=== PATIENT | male | born 1960 | race Hispanic/Latino ===

== ENCOUNTER 2023-09-19 20:12 | Emergency (ER) | payer BC, SELFPAY ==
[2023-09-19] MEDS ORDERED: LORazepam 2 MG/ML SYR.(CARPUJECT) ONE (20:17)
[2023-09-19 21:22] LABS: #Eosinphils 0.1 thou/uL (0.0-0.7); #Monocytes 0.7 thou/uL (0.11-0.59); #Neutrophils 4.8 thou/uL (1.40-6.50); %Basophils 0.6 % (0.0-1.0); %Lymphocytes 16.9 % (21.0-51.0); %Monocytes 9.6 % (0.0-10.0); %Neutrophils 71.5 % (42.0-75.0); Hematocrit 36.4 % (42.0-52.0); Hemoglobin 12.1 g/dL (14.0-18.0); Mean Corpuscular HGB CONC 33.2 g/dL (32.0-36.0); Mean Corpuscular Volume 96.3 fl (78.0-98.0); Mean Platelet Volume 10.9 fL (7.4-10.4); Platelet Count 211 10x3/uL (130-400); RBC Distribution Width 13.8 % (11.5-14.5); Red Blood Cell (RBC) Count 3.78 mill/uL (4.70-6.10); White Blood Cell (WBC) Count 6.7 10x3/uL (4.8-10.8)
[2023-09-19 21:45] LABS: ALT (SGPT) 21 U/L (8-55); AST (SGOT) 20 U/L (5-34); Albumin 3.9 g/dL (3.4-4.8); Alkaline Phosphatase 85 U/L (40-110); Anion Gap 17 mmol/L (10-20); BUN (Urea Nitrogen) 10 mg/dL (8.4-25.7); Bilirubin, Total 0.5 mg/dL (0.2-1.2); Calc. Creatinine Clearance 0 mL/min (70-130); Calcium 8.7 mg/dL (7.8-10.44); Carbon Dioxide 24 mmol/L (23-31); Chloride 102 mmol/L (98-107); Estimated GFR 107; Glucose 121 mg/dL (80-115); Potassium 4.7 mmol/L (3.5-5.1); Protein, Total 6.9 g/dL (5.8-8.1); Sodium 138 mmol/L (136-145)
[2023-09-19 21:50] LABS: Troponin I Less than 0.010 ng/mL (< 0.028)
[2023-09-19 21:54] LABS: Bacteria/HPF None Seen HPF (None Seen); Bilirubin Negative (Negative); Blood, Urine Negative (Negative); CAUTI Indications for Culture Alt mental st,lethar; Clarity Clear (Clear); Glucose, Urine (Dipstick) Normal (Negative); Ketone, Urine Trace mg/dL (Negative); Leukocyte Negative Leu/uL (Negative); Mucous/LPF Rare LPF (<2+); Nitrite Negative (Negative); Protein, Urine (Dipstick) 10 mg/dL (Neg-Trace); RBC/HPF 0-3 HPF (0-3); Specific Gravity, Urine 1.024 (1.002-1.036); Squamous Epithelial None Seen HPF (0-3); Transitional Epithelial 0-3 HPF (None Seen); Urobilinogen Normal mg/dL (Less than 2); WBC/HPF 0-3 HPF (0-3); pH, Urine 5.5 (5.0-9.0)
[2023-09-19 21:55] LABS: Urine Culture Reflex No No
== END 2023-09-19 23:08 | disposition home or self-care (01) ==
LOC: ERS 20:12
DX: R56.9 Unspecified convulsions (principal); E11.9 Type 2 diabetes mellitus without complications
CPT/HCPCS: 36416; 51701; 70450; 80053; 81001; 84484; 85025; 93005; 96372; J2060

== ENCOUNTER 2024-09-24 21:16 | Inpatient (IN) | payer BC, SELFPAY ==
[2024-09-24 21:51] LABS: Actual Bicarbonate (HCO3v) 21.6 mEq/L (22-28); Analyzer IN Cardio ER; Calcium, Ionized (venous) 1.16 mmol/L (1.16-1.32); Chloride (VBG) 103 mmol/L (98-106); Hematocrit-VBG 49 % (42.0-52.0); Hemoglobin (Hb) 16.5 g/dL (13.1-17.2); Potassium (VBG) 4.47 mmol/L (3.70-5.30); Sodium 142 mmol/L (133-146); pH (venous) 7.418 (7.32-7.43)
[2024-09-24 21:52] LABS: #Basophils 0.05 10x3/uL (0.0-0.2); #Eosinophils Less than 0.03 10x3/uL (0.0-0.7); %Basophils 0.3 % (0.0-1.0); %Eosinophils 0.1 % (0.0-10.0); %Lymphocytes 5.3 % (21.0-51.0); %Monocytes 10.7 % (0.0-10.0); %Neutrophils 82.5 % (42.0-75.0); Hematocrit 46.3 % (42.0-52.0); Hemoglobin 15.7 g/dL (14.0-18.0); Mean Corpuscular HGB CONC 33.9 g/dL (32.0-36.0); Mean Corpuscular Hemoglobin 32.2 pg (27.0-31.0); Mean Corpuscular Volume 95.1 fL (78.0-98.0); Mean Platelet Volume 9.9 fL (7.4-10.4); Platelet Count 146 10x3/uL (130-400); RBC Distribution Width 13.6 % (11.5-14.5); Red Blood Cell (RBC) Count 4.87 mill/uL (4.70-6.10)
[2024-09-24 22:10] LABS: ALT (SGPT) 17 U/L (8-55); AST (SGOT) 36 U/L (5-34); Acetaminophen Less than 10 mcg/mL (Less than 10); Albumin 3.1 g/dL (3.4-4.8); Alcohol Less than 10.0 mg/dL (Less than 10); Alkaline Phosphatase 54 U/L (40-110); Anion Gap 19 mmol/L (10-20); BUN (Urea Nitrogen) 18 mg/dL (8.4-25.7); Bilirubin, Total 0.5 mg/dL (0.2-1.2); Calc. Creatinine Clearance 0 mL/min (70-130); Calcium 8.9 mg/dL (7.8-10.44); Carbon Dioxide 18 mmol/L (23-31); Chloride 106 mmol/L (98-107); Estimated GFR 99; Globulin 4.5 g/dL (2.4-3.5); Glucose 189 mg/dL (80-115); Potassium 4.2 mmol/L (3.5-5.1); Protein, Total 7.6 g/dL (5.8-8.1); Salicylate Less than 8.0 mg/dL (Less than 8.0); Sodium 139 mmol/L (136-145)
[2024-09-24 22:21] LABS: Bacteria/HPF None Seen HPF (None Seen); Bilirubin Negative (Negative); Blood, Urine Negative (Negative); CAUTI Indications for Culture Alt mental st,lethar; Clarity Clear (Clear); Glucose, Urine (Dipstick) Normal (Negative); Ketone, Urine 20 mg/dL (Negative); Leukocyte Negative Leu/uL (Negative); Nitrite Negative (Negative); Protein, Urine (Dipstick) 30 mg/dL (Neg-Trace); RBC/HPF 0-3 HPF (0-3); Specific Gravity, Urine 1.039 (1.002-1.036); Squamous Epithelial 0-3 HPF (0-3); WBC/HPF 0-3 HPF (0-3)
[2024-09-24 22:22] LABS: Urine Culture Reflex No No
[2024-09-24 22:27] LABS: Amphetamine Not Detected (NotDetected); Barbiturates Screen Not Detected (NotDetected); Benzodiazepine Screen Not Detected (NotDetected); Cocaine Metabolite Screen Not Detected (NotDetected); Methadone Not Detected (NotDetected); Methamphetamine Not Detected (NotDetected); Opiate Screen Not Detected (NotDetected); Oxycodone Screen Not Detected (NotDetected); Phencyclidine (PCP) Not Detected (NotDetected); THC/Cannabinoid Screen Not Detected (NotDetected); Tricyclic Screen Not Detected (NotDetected)
[2024-09-24] MEDS ORDERED: cefTRIAXone (ROCEPHIN) 2 GM VIAL ONE (22:30)
[2024-09-24] MEDS ORDERED: Acetaminophen 325 MG Suppository ONE (22:30)
[2024-09-24] MEDS ORDERED: Sodium Chloride 0.9% 100 ML ONE (22:30)
[2024-09-24] MEDS ORDERED: Acetaminophen 325 MG TAB PO PRN (23:45)
[2024-09-24] MEDS ORDERED: Ondansetron ODT 4 MG TAB SL PRN (23:45)
[2024-09-24] MEDS ORDERED: Ondansetron PF 4 MG/2 ML Vial IVP PRN (23:45)
[2024-09-25] MEDS ORDERED: Glucagon 1 MG/ML KIT IM PRN (00:27)
[2024-09-25] MEDS ORDERED: Dextrose 50% Abboject 50 ML SYRINGE SLOW IVP PRN (00:27)
[2024-09-25] MEDS ORDERED: Dextrose 5% in Water 1,000 ML IV PRN (00:27)
[2024-09-25] MEDS ORDERED: Insulin Lispro 100 UNIT/ML 10 ML VIAL SC PRN ×2 (00:27)
[2024-09-25] MEDS: Piperacillin/Tazobactam 3.375 GM in Sodium Chloride 0.9% 100 ML IVPB SCH ×3 (01:00→10:01)
[2024-09-25 01:42] LABS: Lactic Acid 3.61 mmol/L (0.5-2.2)
[2024-09-25] MEDS: Sodium Chloride 0.9% 1,000 ML IV SCH (02:15)
[2024-09-25 03:07] VITALS: BMI 30.6
[2024-09-25] MEDS: Vancomycin (BATCH) 1.75 GM in Premix 1 BAG IVPB SCH (04:35)
[2024-09-25 04:40] LABS: #Basophils 0.04 10x3/uL (0.0-0.2); #Eosinophils Less than 0.03 10x3/uL (0.0-0.7); %Basophils 0.3 % (0.0-1.0); %Lymphocytes 13.9 % (21.0-51.0); %Monocytes 8.8 % (0.0-10.0); Hematocrit 42.4 % (42.0-52.0); Hemoglobin 13.8 g/dL (14.0-18.0); Mean Corpuscular HGB CONC 32.5 g/dL (32.0-36.0); Mean Corpuscular Hemoglobin 32.2 pg (27.0-31.0); Mean Corpuscular Volume 99.1 fL (78.0-98.0); Mean Platelet Volume 11.5 fL (7.4-10.4); Platelet Count 97 10x3/uL (130-400); RBC Distribution Width 13.7 % (11.5-14.5); Red Blood Cell (RBC) Count 4.28 mill/uL (4.70-6.10)
[2024-09-25 04:54] LABS: Anion Gap 13 mmol/L (10-20); BUN (Urea Nitrogen) 16 mg/dL (8.4-25.7); Calc. Creatinine Clearance 133 mL/min (70-130); Calcium 8.1 mg/dL (7.8-10.44); Carbon Dioxide 26 mmol/L (23-31); Chloride 109 mmol/L (98-107); Estimated GFR 105; Glucose 118 mg/dL (80-115); Magnesium 2.1 mg/dL (1.6-2.6); Potassium 4.3 mmol/L (3.5-5.1); Sodium 144 mmol/L (136-145)
[2024-09-25 04:55] LABS: Vancomycin, Random 25.9 ug/mL (See Comment)
[2024-09-25 04:59] LABS: Lactic Acid 3.42 mmol/L (0.5-2.2)
[2024-09-25 05:57] LABS: Platelet Adequacy Comment Platelets Decreased; RBC Morphology Within Normal Limits
[2024-09-25] MEDS ORDERED: Piperacillin/Tazobactam 3.375 GM in Sodium Chloride 0.9% 100 ML IVPB SCH (06:00)
[2024-09-25] MEDS ORDERED: Vancomycin 1 GM in Premix 1 BAG IVPB SCH (12:00)
[2024-09-25] MEDS: VANCOMYCIN 1.25 GM/250 ML BAG 1.25 GM in Premix 1 BAG IVPB SCH (12:39)
[2024-09-25] MEDS: Aspirin 81 mg Enteric Coated Tablet PO SCH (14:32)
[2024-09-25] MEDS: Lactated Ringer's 1,000 ML IV SCH (15:41)
[2024-09-25] MEDS: Atorvastatin Calcium 40 MG TAB PO SCH (22:27)
[2024-09-25] MEDS: Divalproex Sodium DR 500 MG TAB PO SCH (22:27)
[2024-09-26 05:24] LABS: #Basophils 0.06 10x3/uL (0.0-0.2); %Basophils 0.8 % (0.0-1.0); %Lymphocytes 24.2 % (21.0-51.0); %Monocytes 10.6 % (0.0-10.0); %Neutrophils 61.6 % (42.0-75.0); Hematocrit 37.3 % (42.0-52.0); Hemoglobin 12.1 g/dL (14.0-18.0); Mean Corpuscular HGB CONC 32.4 g/dL (32.0-36.0); Mean Corpuscular Hemoglobin 31.6 pg (27.0-31.0); Mean Corpuscular Volume 97.4 fL (78.0-98.0); Mean Platelet Volume 10.2 fL (7.4-10.4); Platelet Count 119 10x3/uL (130-400); RBC Distribution Width 13.8 % (11.5-14.5); Red Blood Cell (RBC) Count 3.83 mill/uL (4.70-6.10)
[2024-09-26 05:33] LABS: Anion Gap 11 mmol/L (10-20); BUN (Urea Nitrogen) 15 mg/dL (8.4-25.7); Calc. Creatinine Clearance 140 mL/min (70-130); Calcium 8.1 mg/dL (7.8-10.44); Carbon Dioxide 25 mmol/L (23-31); Chloride 111 mmol/L (98-107); Estimated GFR 106; Glucose 97 mg/dL (80-115); Sodium 143 mmol/L (136-145)
[2024-09-26] MEDS ORDERED: [UNRECOGNIZED DRUG - OTHER] PO SCH (09:00)
[2024-09-26] MEDS: Cyanocobalamin (Vitamin B-12) 1,000 MCG TAB PO SCH (09:45)
[2024-09-26] MEDS: Aspirin 81 mg Enteric Coated Tablet PO SCH (09:45)
[2024-09-26] MEDS: metFORMIN 500 MG TAB PO SCH (09:45)
[2024-09-26] MEDS: Losartan 25 MG TAB PO SCH (09:46)
[2024-09-26] MEDS: levETIRAcetam 500 MG (5 mL) VIAL SLOW IVP SCH ×2 (10:44→21:29)
[2024-09-26 10:54] LABS: Cardiac Risk 5.2 (Less than 4.5)
[2024-09-27 04:41] LABS: #Basophils 0.08 10x3/uL (0.0-0.2); %Basophils 1.1 % (0.0-1.0); %Lymphocytes 24.7 % (21.0-51.0); %Monocytes 12.9 % (0.0-10.0); Hematocrit 35.6 % (42.0-52.0); Hemoglobin 11.8 g/dL (14.0-18.0); Mean Corpuscular HGB CONC 33.1 g/dL (32.0-36.0); Mean Corpuscular Volume 96.5 fL (78.0-98.0); Mean Platelet Volume 10.1 fL (7.4-10.4); Platelet Count 114 10x3/uL (130-400); RBC Distribution Width 13.2 % (11.5-14.5); Red Blood Cell (RBC) Count 3.69 mill/uL (4.70-6.10)
[2024-09-27 04:45] LABS: Vancomycin, Random Less than 1.4 ug/mL (See Comment)
[2024-09-27 04:50] LABS: Anion Gap 8 mmol/L (10-20); BUN (Urea Nitrogen) 12 mg/dL (8.4-25.7); Calc. Creatinine Clearance 155 mL/min (70-130); Calcium 8.1 mg/dL (7.8-10.44); Carbon Dioxide 26 mmol/L (23-31); Chloride 107 mmol/L (98-107); Estimated GFR 109; Glucose 98 mg/dL (80-115); Potassium 4.1 mmol/L (3.5-5.1); Sodium 137 mmol/L (136-145)
[2024-09-27 16:31] VITALS: BMI 30.6
[2024-09-28 03:42] LABS: #Basophils 0.06 10x3/uL (0.0-0.2); %Basophils 0.7 % (0.0-1.0); %Eosinophils 0.8 % (0.0-10.0); %Lymphocytes 17.7 % (21.0-51.0); %Monocytes 12.3 % (0.0-10.0); %Neutrophils 66.1 % (42.0-75.0); Hematocrit 37.5 % (42.0-52.0); Hemoglobin 12.6 g/dL (14.0-18.0); Mean Corpuscular HGB CONC 33.6 g/dL (32.0-36.0); Mean Corpuscular Hemoglobin 31.4 pg (27.0-31.0); Mean Corpuscular Volume 93.5 fL (78.0-98.0); Mean Platelet Volume 9.6 fL (7.4-10.4); Platelet Count 139 10x3/uL (130-400); RBC Distribution Width 12.7 % (11.5-14.5); Red Blood Cell (RBC) Count 4.01 mill/uL (4.70-6.10)
[2024-09-28 03:53] LABS: Anion Gap 11 mmol/L (10-20); BUN (Urea Nitrogen) 8 mg/dL (8.4-25.7); Calc. Creatinine Clearance 147 mL/min (70-130); Carbon Dioxide 23 mmol/L (23-31); Chloride 105 mmol/L (98-107); Estimated GFR 108; Glucose 160 mg/dL (80-115); Sodium 135 mmol/L (136-145)
[2024-09-28] MEDS ORDERED: Etomidate 40 MG (20 mL) VIAL ONE (07:37)
[2024-09-28] MEDS ORDERED: PROPOFOL 20 ML ONE (07:37)
[2024-09-28] MEDS ORDERED: Lidocaine 2% PF 100 mg/5 ml Syringe ONE (07:37)
[2024-09-28] MEDS ORDERED: ePHEDrine Sulfate 50 MG/10 ML VIAL ONE (07:37)
[2024-09-28] MEDS ORDERED: Rocuronium Bromide 10 MG/ML (10ML VIAL) ONE (07:37)
[2024-09-28] MEDS ORDERED: PHENYLEPHRINE-NS 100 MCG/ML 10 ML SYRINGE ONE (07:37)
[2024-09-28] MEDS ORDERED: SUCCINYLCHOLINE/SOD CL,ISO/PF 200 MG/10 ML SYRINGE FS ONE (07:37)
[2024-09-28] MEDS ORDERED: SUGAMMADEX SODIUM 200 MG/2 ML VIAL ONE (07:42)
[2024-09-28] MEDS ORDERED: KETAMINE 100 MG/ML (5ML VIAL) ONE (08:14)
[2024-09-28] MEDS ORDERED: Glycopyrrolate 0.2 MG/ML 5 ML SYRINGE ONE (08:27)
[2024-09-28] MEDS ORDERED: Pantoprazole 40 MG GRANULES PACKET PO SCH (11:00)
[2024-09-28] MEDS: cefTRIAXone\\ROCEPHIN 2 GM in Sodium Chloride 0.9% 100 ML IVPB SCH (11:18)
[2024-09-29 04:58] LABS: #Basophils 0.08 10x3/uL (0.0-0.2); %Basophils 0.9 % (0.0-1.0); %Eosinophils 0.9 % (0.0-10.0); Hematocrit 39.7 % (42.0-52.0); Hemoglobin 13.5 g/dL (14.0-18.0); Mean Corpuscular Hemoglobin 31.8 pg (27.0-31.0); Mean Corpuscular Volume 93.4 fL (78.0-98.0); Mean Platelet Volume 9.8 fL (7.4-10.4); Platelet Count 184 10x3/uL (130-400); RBC Distribution Width 13.2 % (11.5-14.5); Red Blood Cell (RBC) Count 4.25 mill/uL (4.70-6.10)
[2024-09-29 05:17] LABS: Anion Gap 12 mmol/L (10-20); BUN (Urea Nitrogen) 7 mg/dL (8.4-25.7); Calc. Creatinine Clearance 157 mL/min (70-130); Calcium 8.4 mg/dL (7.8-10.44); Carbon Dioxide 23 mmol/L (23-31); Chloride 107 mmol/L (98-107); Estimated GFR 110; Glucose 103 mg/dL (80-115); Potassium 3.9 mmol/L (3.5-5.1); Sodium 138 mmol/L (136-145)
[2024-09-29] MEDS: Pantoprazole 40 MG GRANULES PACKET PO SCH (08:34)
[2024-09-29] MEDS: Enoxaparin 40 MG (0.4 mL) SYRINGE SC SCH (10:13)
[2024-09-29] MEDS: levETIRAcetam 500 mg/5 ml Oral Solution PER TUBE SCH (20:56)
[2024-09-30 03:50] LABS: #Basophils 0.06 10x3/uL (0.0-0.2); %Basophils 0.6 % (0.0-1.0); %Eosinophils 0.9 % (0.0-10.0); %Lymphocytes 17.8 % (21.0-51.0); %Monocytes 14.7 % (0.0-10.0); %Neutrophils 64.8 % (42.0-75.0); Hematocrit 40.4 % (42.0-52.0); Hemoglobin 13.3 g/dL (14.0-18.0); Mean Corpuscular HGB CONC 32.9 g/dL (32.0-36.0); Mean Corpuscular Hemoglobin 31.3 pg (27.0-31.0); Mean Corpuscular Volume 95.1 fL (78.0-98.0); Mean Platelet Volume 10.4 fL (7.4-10.4); Platelet Count 236 10x3/uL (130-400); RBC Distribution Width 13.6 % (11.5-14.5); Red Blood Cell (RBC) Count 4.25 mill/uL (4.70-6.10)
[2024-09-30 04:10] LABS: Anion Gap 13 mmol/L (10-20); BUN (Urea Nitrogen) 11 mg/dL (8.4-25.7); Calc. Creatinine Clearance 142 mL/min (70-130); Calcium 8.6 mg/dL (7.8-10.44); Carbon Dioxide 24 mmol/L (23-31); Chloride 107 mmol/L (98-107); Estimated GFR 107; Glucose 196 mg/dL (80-115); Potassium 5.1 mmol/L (3.5-5.1); Sodium 139 mmol/L (136-145)
[2024-09-30] MEDS: Enoxaparin 40 MG (0.4 mL) SYRINGE SC SCH (07:50)
[2024-09-30 16:24] VITALS: BP 103/70; TEMP 98.7
== END 2024-09-30 17:30 | disposition home or self-care (01) | DRG 64 ==
LOC: ERS 21:16 → ERHOLD 23:46 → PCU 09-25 02:54
PROVIDERS: ADMIT Internal Medicine; ATTEND Hospitalist
PROC: 0DH63UZ Insertion of Feeding Device into Stomach, Percutaneous Approach (ICD-10-PCS; principal; 2024-09-28)
PROC: 0DB68ZX Excision of Stomach, Via Natural or Artificial Opening Endoscopic, Diagnostic (ICD-10-PCS; 2024-09-28)
PROC: 4A00X4Z Measurement of Central Nervous Electrical Activity, External Approach (ICD-10-PCS; 2024-09-29)
DX: I63.332 Cerebral infarction due to thrombosis of left posterior cerebral artery (principal); A41.9 Sepsis, unspecified organism; J18.9 Pneumonia, unspecified organism; G93.41 Metabolic encephalopathy; G92.8 Other toxic encephalopathy; E11.9 Type 2 diabetes mellitus without complications; R13.11 Dysphagia, oral phase; K29.70 Gastritis, unspecified, without bleeding; K44.9 Diaphragmatic hernia without obstruction or gangrene; Z87.820 Personal history of traumatic brain injury; Z79.899 Other long term (current) drug therapy
CPT/HCPCS: 36415; 36416; 51702; 70450; 70551; 71045; 74018; 74176; 80048; 80053; 80061; 80202; 80306; 80307; 81001; 82140; 82805; 83605; 83735; 83880; 84145; 85025; 87040; 87077; 87086; 87149; 87428; 88305; 88342; 93005; 93306; 93880; 94760; 95700; 95711; 95957; 96361; 96365; 96366; 96375; B4087; J0696; J1650; J1953; J2003; J2543; J2704; J3370; J7030

== ENCOUNTER 2024-10-15 22:41 | Inpatient (IN) | payer BC, SELFPAY ==
[2024-10-15 23:17] LABS: #Basophils Less than 0.03 10x3/uL (0.0-0.2); %Basophils 0.2 % (0.0-1.0); %Eosinophils 0.8 % (0.0-10.0); %Lymphocytes 12.8 % (21.0-51.0); %Monocytes 6.3 % (0.0-10.0); %Neutrophils 79.4 % (42.0-75.0); Hematocrit 40.1 % (42.0-52.0); Mean Corpuscular HGB CONC 32.4 g/dL (32.0-36.0); Mean Corpuscular Hemoglobin 31.2 pg (27.0-31.0); Mean Corpuscular Volume 96.2 fL (78.0-98.0); Mean Platelet Volume 11.7 fL (7.4-10.4); Platelet Count 182 10x3/uL (130-400); RBC Distribution Width 13.9 % (11.5-14.5); Red Blood Cell (RBC) Count 4.17 mill/uL (4.70-6.10)
[2024-10-15] MEDS ORDERED: cefTRIAXone (ROCEPHIN) 2 GM VIAL ONE (23:19)
[2024-10-15] MEDS ORDERED: Vancomycin HCl 500 MG VIAL ONE (23:19)
[2024-10-15] MEDS ORDERED: Sodium Chloride 0.9% 100 ML ONE (23:19)
[2024-10-15 23:25] LABS: Actual Bicarbonate (HCO3v) 22.5 mEq/L (22-28); Analyzer IN Cardio ER; Base Excess -1.1 mEq/L (-2.0 to +3.0); Chloride (VBG) 110 mmol/L (98-106); Hematocrit-VBG 42 % (42.0-52.0); Hemoglobin (Hb) 14.3 g/dL (13.1-17.2); Potassium (VBG) 3.52 mmol/L (3.70-5.30); pH (venous) 7.434 (7.32-7.43)
[2024-10-15 23:28] LABS: Sodium 152 mmol/L (133-146)
[2024-10-15 23:36] LABS: ALT (SGPT) 27 U/L (Less than 45); AST (SGOT) 31 U/L (11-34); Albumin 2.8 g/dL (3.1-4.5); Alkaline Phosphatase 56 U/L (40-110); Anion Gap 15 mmol/L (10-20); BUN (Urea Nitrogen) 18 mg/dL (8.4-25.7); Bilirubin, Total 0.4 mg/dL (0.3-1.2); Calc. Creatinine Clearance 0 mL/min (70-130); Calcium 8.7 mg/dL (7.8-10.44); Carbon Dioxide 25 mmol/L (23-31); Chloride 116 mmol/L (98-107); Estimated GFR 106; Globulin 4.4 g/dL (2.4-3.5); Glucose 234 mg/dL (80-115); Potassium 3.5 mmol/L (3.5-5.1); Protein, Total 7.2 g/dL (5.8-8.1); Sodium 152 mmol/L (136-145)
[2024-10-16 02:32] LABS: Lactic Acid 2.41 mmol/L (0.50-2.20)
[2024-10-16] MEDS ORDERED: Ondansetron PF 4 MG/2 ML Vial IVP PRN (03:06)
[2024-10-16] MEDS ORDERED: Acetaminophen 650 MG Suppository PR PRN (03:06)
[2024-10-16] MEDS ORDERED: Dextrose 50% Abboject 50 ML SYRINGE SLOW IVP PRN (03:17)
[2024-10-16] MEDS ORDERED: Dextrose 5% in Water 1,000 ML IV PRN (03:17)
[2024-10-16] MEDS ORDERED: Insulin Regular, Human 100 UNIT/ML 10 ML VIAL SC PRN ×2 (03:17)
[2024-10-16] MEDS ORDERED: Glucagon 1 MG/ML KIT IM PRN (03:17)
[2024-10-16 03:43] VITALS: BMI 28.4
[2024-10-16] MEDS: Vancomycin 1.5 GRAM/300 ML BAG 1.5 GM in Premix 1 BAG IVPB SCH ×2 (04:10→14:47)
[2024-10-16] MEDS: Dextrose 5%-Lactated Ringers 1,000 ML IV SCH (04:45)
[2024-10-16] MEDS: Scopolamine 1 mg/72 hour Patch TD SCH (04:54)
[2024-10-16] MEDS: Cefepime 1 GM in Sodium Chloride 0.9% 100 ML IVPB SCH (05:04)
[2024-10-16 06:33] LABS: #Basophils 0.04 10x3/uL (0.0-0.2); %Basophils 0.5 % (0.0-1.0); %Eosinophils 1.4 % (0.0-10.0); %Lymphocytes 19.7 % (21.0-51.0); %Monocytes 8.4 % (0.0-10.0); %Neutrophils 69.7 % (42.0-75.0); Hematocrit 36.5 % (42.0-52.0); Hemoglobin 11.5 g/dL (14.0-18.0); Mean Corpuscular HGB CONC 31.5 g/dL (32.0-36.0); Mean Corpuscular Hemoglobin 31.3 pg (27.0-31.0); Mean Corpuscular Volume 99.2 fL (78.0-98.0); Mean Platelet Volume 11.7 fL (7.4-10.4); Platelet Count 155 10x3/uL (130-400); RBC Distribution Width 13.9 % (11.5-14.5); Red Blood Cell (RBC) Count 3.68 mill/uL (4.70-6.10)
[2024-10-16 06:54] LABS: Anion Gap 10 mmol/L (10-20); BUN (Urea Nitrogen) 14 mg/dL (8.4-25.7); Calc. Creatinine Clearance 172 mL/min (70-130); Carbon Dioxide 25 mmol/L (23-31); Chloride 120 mmol/L (98-107); Estimated GFR 115; Glucose 137 mg/dL (80-115); Potassium 3.4 mmol/L (3.5-5.1); Sodium 152 mmol/L (136-145)
[2024-10-16] MEDS ORDERED: Vancomycin 1 GM in Sodium Chloride 0.9% 250 ML 250 ML IVPB SCH (09:00)
[2024-10-16] MEDS: FLU (Fluarix Triv) TS24-25(6MOS UP)/PF 45 MCG/0.5 ML Syringe IM ONE (09:36)
[2024-10-16] MEDS: Potassium Bicarbonate/Cit Ac 20 MEQ TAB PER TUBE SCH (09:54)
[2024-10-16] MEDS: levETIRAcetam 500 MG TAB PER TUBE SCH (09:54)
[2024-10-16] MEDS: Pantoprazole 40 MG GRANULES PACKET PER TUBE SCH (09:55)
[2024-10-16] MEDS: Aspirin Chewable 81 MG TAB PER TUBE SCH (09:55)
[2024-10-16] MEDS: Cyanocobalamin (Vitamin B-12) 1,000 MCG TAB PER TUBE SCH (09:55)
[2024-10-16] MEDS: metroNIDAZOLE 500 MG TAB PO SCH (09:55)
[2024-10-16] MEDS: Prenatal Vitamin 1 TAB PER TUBE SCH (09:55)
[2024-10-16 10:13] VITALS: BMI 28.4
[2024-10-16] MEDS ORDERED: Vancomycin (BATCH) 1.5 GM in Premix 1 BAG IVPB SCH (12:00)
[2024-10-16 14:07] LABS: Phosphorus 3.7 mg/dL (2.5-4.5)
[2024-10-16 14:14] LABS: Anion Gap 11 mmol/L (10-20); BUN (Urea Nitrogen) 13 mg/dL (8.4-25.7); Calc. Creatinine Clearance 169 mL/min (70-130); Calcium 8.5 mg/dL (7.8-10.44); Carbon Dioxide 27 mmol/L (23-31); Chloride 119 mmol/L (98-107); Estimated GFR 114; Glucose 141 mg/dL (80-115); Magnesium 2.2 mg/dL (1.6-2.6); Potassium 4.1 mmol/L (3.5-5.1); Sodium 153 mmol/L (136-145)
[2024-10-16] MEDS: Dextrose 5% in Water 1,000 ML IV SCH ×2 (15:08→16:11)
[2024-10-16] MEDS: Cefepime 2 GM in Sodium Chloride 0.9% 100 ML IVPB SCH (18:14)
[2024-10-17 06:12] LABS: Hematocrit 36.9 % (42.0-52.0); Hemoglobin 11.9 g/dL (14.0-18.0); Mean Corpuscular HGB CONC 32.2 g/dL (32.0-36.0); Mean Corpuscular Hemoglobin 31.8 pg (27.0-31.0); Mean Corpuscular Volume 98.7 fL (78.0-98.0); Mean Platelet Volume 11.9 fL (7.4-10.4); Platelet Count 141 10x3/uL (130-400); RBC Distribution Width 13.3 % (11.5-14.5); Red Blood Cell (RBC) Count 3.74 mill/uL (4.70-6.10)
[2024-10-17 06:38] LABS: Vancomycin, Random 25.8 ug/mL (See Comment)
[2024-10-17 06:42] LABS: Anion Gap 13 mmol/L (10-20); BUN (Urea Nitrogen) 15 mg/dL (8.4-25.7); Calc. Creatinine Clearance 162 mL/min (70-130); Calcium 8.4 mg/dL (7.8-10.44); Carbon Dioxide 27 mmol/L (23-31); Chloride 114 mmol/L (98-107); Estimated GFR 113; Glucose 157 mg/dL (80-115); Potassium 4.4 mmol/L (3.5-5.1); Sodium 150 mmol/L (136-145)
[2024-10-17 06:45] LABS: Lactic Acid 2.83 mmol/L (0.50-2.20)
[2024-10-17] MEDS: VANCOMYCIN 1.25 GM/250 ML BAG 1.25 GM in Premix 1 BAG IVPB SCH (13:33)
[2024-10-18 06:11] LABS: Hematocrit 34.6 % (42.0-52.0); Mean Corpuscular HGB CONC 31.8 g/dL (32.0-36.0); Mean Corpuscular Hemoglobin 31.5 pg (27.0-31.0); Mean Corpuscular Volume 99.1 fL (78.0-98.0); Platelet Count 133 10x3/uL (130-400); RBC Distribution Width 13.2 % (11.5-14.5); Red Blood Cell (RBC) Count 3.49 mill/uL (4.70-6.10)
[2024-10-18 06:17] LABS: Anion Gap 11 mmol/L (10-20); BUN (Urea Nitrogen) 11 mg/dL (8.4-25.7); Calc. Creatinine Clearance 159 mL/min (70-130); Calcium 7.9 mg/dL (7.8-10.44); Carbon Dioxide 26 mmol/L (23-31); Chloride 111 mmol/L (98-107); Estimated GFR 112; Glucose 185 mg/dL (80-115); Potassium 3.8 mmol/L (3.5-5.1); Sodium 144 mmol/L (136-145)
[2024-10-18 14:30] VITALS: BP 106/62; TEMP 98.1
== END 2024-10-18 14:25 | disposition hospice, inpatient (51) | DRG 178 ==
LOC: ERS 22:41 → T4-A 10-16 02:23 → OBSVTOIN 10-16 02:23
PROVIDERS: ADMIT Student in an Organized Health Care Education/Training Program; ATTEND Internal Medicine
DX: J69.0 Pneumonitis due to inhalation of food and vomit (principal); E87.0 Hyperosmolality and hypernatremia; E87.20 Acidosis, unspecified; E11.9 Type 2 diabetes mellitus without complications; E86.0 Dehydration; R13.12 Dysphagia, oropharyngeal phase; Z51.5 Encounter for palliative care; Z79.84 Long term (current) use of oral hypoglycemic drugs; Z79.899 Other long term (current) drug therapy; I69.391 Dysphagia following cerebral infarction
CPT/HCPCS: 36415; 36416; 70450; 71045; 74018; 80048; 80053; 80202; 82805; 83605; 83735; 84100; 85025; 85027; 87040; 87081; 87428; 94760; 96361; 96365; 96366; 96367; 97139; J0692; J0696; J3370; J7070